=== PATIENT | male | born 1950 | race Caucasian/White ===

== ENCOUNTER → 2016-11-08 | Outpatient (CLI) | payer OTHER ==
[~2016-11-08] MED LIST: ASA81BEC PO; ATORVASTATIN CA40 MG PO; CENTRUM SILVER1 EAC1 PO; CRESTOR20 MG PO; DIOVAN 80 MG TA80 M1 PO; DIOVAN PO; HYDROCHLOROTHIA25 M1 PO; IBUPROFEN 800800 M1 PO; LIPITOR80 MG PO; MIRAPEX PO; MIRAPEX1 MG PO; SKELAXIN 800 M800 M1 PO; TOPROL XL25 MG PO
== END ==
LOC: CAT 06:11
DX: I77.810 Thoracic aortic ectasia (principal)

== ENCOUNTER 2017-02-11 08:39 | Observation (INO) | payer OTHER ==
[~2017-02-11] VITALS: Ht 190.5 cm; Wt 92.6 kg
--- NOTE | ~2017-02-11 | EKG ---
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
--- NOTE | ~2017-02-11 | EKG ---
[address] [address] ELECTROCARDIOGRAM REPORT Name: DANIELA CARVALHO Room #: 214-P [facility].#: [id number] Admission: 02/11/17 Attend Phys: Aman Iverson DO Discharge: Date of : 54 Report #: [id number] THIS REPORT FOR: //name// 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
[2017-02-11 08:40] VITALS: BP 152/82
[2017-02-11 08:58] LABS: ABSOLUTE NEUTROPHILS 3.2 thou/uL (1.4-8.2); BASOPHILS 0.9 % (0.0-2.0); EOSINOPHILS 2.4 % (0.0-3.0); HEMATOCRIT 38.7 % (42.0-52.0); HEMOGLOBIN 13.6 gm/dL (14.0-18.0); LYMPHOCYTES 26.3 % (24.0-44.0); MCH 31.4 pg (26.0-34.0); MCHC 35.2 g/dL (28.0-37.0); MCV 89.3 fL (80.0-100.0); MONOCYTES 6.3 % (1.0-8.0); PLATELET COUNT 142 thou/uL (150-400); POLYS 64.1 % (36.0-66.0); RBC 4.34 mil/uL (4.50-6.00); RDW 13.5 % (10.5-14.5); WBC 5.1 thou/uL (4.0-11.0)
[2017-02-11 08:59] LABS: MANUAL DIFF NO
[2017-02-11 09:04] LABS: ANION GAP 6 mmol/L (7-16); BUN 17 mg/dL (7-18); CALCIUM 8.7 mg/dL (8.5-10.1); CHLORIDE 107 mmol/L (98-107); CO2 28 mmol/L (21-32); CREATININE 0.9 mg/dL (0.7-1.3); GLUCOSE 131 mg/dL (74-106); POTASSIUM 3.6 mmol/L (3.5-5.1); SODIUM 141 mmol/L (136-145)
[2017-02-11 09:12] LABS: TROPONIN-I < 0.04 ng/mL (<0.04-0.07)
[2017-02-11 10:49] VITALS: BP 120/73
[2017-02-11 11:25] VITALS: BP 122/86
[2017-02-11] MEDS ORDERED: ZETIA10 MG PO (12:31)
[2017-02-11 16:40] VITALS: BP 134/85
[2017-02-11 20:14] VITALS: BP 120/80
[2017-02-11 23:42] VITALS: BP 120/69
[2017-02-12 04:26] VITALS: BP 133/88
[2017-02-12 07:15] VITALS: BP 128/81
[2017-02-12 07:42] VITALS: BP 128/81
[2017-02-12 09:31] VITALS: BP 128/81
== END 2017-02-12 09:50 | disposition home or self-care (01) ==
LOC: ER 08:39 → EROBS 10:39 → 2N 10:52
PROVIDERS: Emergency Medicine
DX: R07.9 Chest pain, unspecified (principal); I10 Essential (primary) hypertension; I25.10 Atherosclerotic heart disease of native coronary artery without angina pectoris; G25.0 Essential tremor; E78.5 Hyperlipidemia, unspecified; I71.2 Thoracic aortic aneurysm, without rupture; Z88.8 Allergy status to other drugs, medicaments and biological substances; Z79.1 Long term (current) use of non-steroidal anti-inflammatories (NSAID); Z79.899 Other long term (current) drug therapy; Z98.890 Other specified postprocedural states

== ENCOUNTER → 2017-11-10 | Outpatient (CLI) | payer OTHER ==
[~2017-11-10] MED LIST changes: +ZETIA10 MG PO
== END ==
LOC: CAT 11-07 10:21
DX: I71.2 Thoracic aortic aneurysm, without rupture (principal); I25.10 Atherosclerotic heart disease of native coronary artery without angina pectoris; N28.1 Cyst of kidney, acquired; M47.894 Other spondylosis, thoracic region

== ENCOUNTER → 2018-07-19 | Outpatient (CLI) | payer OTHER ==
[2018-07-19 08:27] LABS: CREATININE 1.1 mg/dL (0.7-1.3)
== END ==
LOC: CAT 07:20
PROVIDERS: Internal Medicine Cardiovascular Disease
DX: I25.10 Atherosclerotic heart disease of native coronary artery without angina pectoris (principal); I71.2 Thoracic aortic aneurysm, without rupture; N28.1 Cyst of kidney, acquired

== ENCOUNTER 2018-12-12 15:52 | Emergency (ER) | payer OTHER ==
[~2018-12-12] VITALS: Ht 190.5 cm; Wt 102.1 kg
[2018-12-12 16:20] LABS: ABSOLUTE NEUTROPHILS 3.1 thou/uL (1.4-8.2); EOSINOPHILS 1.3 % (0.0-3.0); HEMATOCRIT 39.1 % (42.0-52.0); HEMOGLOBIN 13.6 gm/dL (14.0-18.0); MCH 30.7 pg (26.0-34.0); MCHC 34.9 g/dL (28.0-37.0); MCV 88.1 fL (80.0-100.0); MONOCYTES 7.3 % (1.0-8.0); PLATELET COUNT 152 thou/uL (150-400); POLYS 56.4 % (36.0-66.0); RBC 4.44 mil/uL (4.50-6.00); RDW 13.4 % (10.5-14.5); WBC 5.5 thou/uL (4.0-11.0)
[2018-12-12 16:29] LABS: ANION GAP 8 mmol/L (7-16); BUN 17 mg/dL (7-18); CALCIUM 9.3 mg/dL (8.5-10.1); CHLORIDE 104 mmol/L (98-107); CO2 30 mmol/L (21-32); GLUCOSE 98 mg/dL (74-106); POTASSIUM 3.5 mmol/L (3.5-5.1); SODIUM 142 mmol/L (136-145)
[2018-12-12 16:40] LABS: MAGNESIUM 2.1 mg/dL (1.8-2.4); SGOT 20 U/L (15-37); SGPT 24 U/L (30-65); TOTAL BILIRUBIN 0.9 mg/dL (<0.1-1.0); TOTAL PROTEIN 6.9 g/dL (6.4-8.2); TROPONIN-I <0.06 ng/mL (<0.06)
[2018-12-12] MEDS ORDERED: NORFLEX100 MG PO (17:26)
[2018-12-12] MEDS ORDERED: NAPROSYN500 MG PO (17:26)
[2018-12-12 18:01] VITALS: BP 153/90
--- NOTE | 2018-12-13 09:43 | EKG ---
[address] [place] [address] ELECTROCARDIOGRAM REPORT Name: DANIELA CARVALHO 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1950 Requested By: Tad Roland Order Number: [id number] MD: Jerome Garner Measurements Intervals [place] Rate: 50 P: 37 HI: 192 QRS: 25 QRSD: 106 T: 8 QT: 451 QTc: 412 Interpretive Statements Sinus bradycardia Nonspecific ST segment abnormality Compared to ECG 02/11/2017 11:46:10 No significant change was found Electronically Signed On 12-13-2018 9:43:09 CDT by Jerome Garner [email or web address] ��������������������������������������������� <ELECTRONICALLY SIGNED> ���������������������������������������� By: Jerome Garner MD, [facility] ��������������������������������������������� 12/13/18 0943 1557 1557 Jerome Garner MD, FACC /EPI
== END 2018-12-12 18:04 | disposition home or self-care (01) ==
LOC: ER 15:52
PROVIDERS: Emergency Medicine
DX: I71.2 Thoracic aortic aneurysm, without rupture (principal); R07.89 Other chest pain; M43.6 Torticollis; Z87.891 Personal history of nicotine dependence; Z88.5 Allergy status to narcotic agent; M19.90 Unspecified osteoarthritis, unspecified site

== ENCOUNTER → 2019-08-01 | Outpatient (CLI) | payer OTHER ==
[~2019-08-01] MED LIST changes: +NAPROSYN500 MG PO; +NORFLEX100 MG PO
[2019-08-01 08:01] LABS: CREATININE 0.9 mg/dL (0.7-1.3)
== END ==
LOC: CAT 07:30
PROVIDERS: Internal Medicine Cardiovascular Disease
DX: I71.6 Thoracoabdominal aortic aneurysm, without rupture (principal); I25.10 Atherosclerotic heart disease of native coronary artery without angina pectoris; N28.1 Cyst of kidney, acquired; M47.814 Spondylosis without myelopathy or radiculopathy, thoracic region

== ENCOUNTER → 2020-02-07 | Outpatient (CLI) | payer OTHER | LOC: SJCVC 12:59 | PROVIDERS: ATTEND Internal Medicine Cardiovascular Disease | DX: R00.1 Bradycardia, unspecified (principal); I25.10 Atherosclerotic heart disease of native coronary artery without angina pectoris; I10 Essential (primary) hypertension; E78.00 Pure hypercholesterolemia, unspecified; I71.2 Thoracic aortic aneurysm, without rupture ==

== ENCOUNTER → 2020-09-04 | Outpatient (CLI) | payer OTHER | LOC: SJCVC 10:44 | PROVIDERS: ATTEND Urology | DX: R94.31 Abnormal electrocardiogram [ECG] [EKG] (principal); I25.10 Atherosclerotic heart disease of native coronary artery without angina pectoris; I10 Essential (primary) hypertension; E78.00 Pure hypercholesterolemia, unspecified; I71.2 Thoracic aortic aneurysm, without rupture; R00.1 Bradycardia, unspecified; I48.91 Unspecified atrial fibrillation; I25.5 Ischemic cardiomyopathy; E78.5 Hyperlipidemia, unspecified; Z87.891 Personal history of nicotine dependence; Z79.82 Long term (current) use of aspirin; Z79.899 Other long term (current) drug therapy; Z88.5 Allergy status to narcotic agent ==

== ENCOUNTER → 2020-09-16 | Outpatient (CLI) | payer OTHER | LOC: SJCVCIMAG 06:38 | PROVIDERS: ATTEND Internal Medicine Cardiovascular Disease | DX: I25.10 Atherosclerotic heart disease of native coronary artery without angina pectoris (principal); R00.0 Tachycardia, unspecified; I49.3 Ventricular premature depolarization; I48.91 Unspecified atrial fibrillation; I10 Essential (primary) hypertension; E78.00 Pure hypercholesterolemia, unspecified; I71.4 Abdominal aortic aneurysm, without rupture; I42.9 Cardiomyopathy, unspecified; E78.5 Hyperlipidemia, unspecified; Z98.890 Other specified postprocedural states; Z88.8 Allergy status to other drugs, medicaments and biological substances; Z79.82 Long term (current) use of aspirin; Z79.899 Other long term (current) drug therapy; Z87.891 Personal history of nicotine dependence; Z82.49 Family history of ischemic heart disease and other diseases of the circulatory system ==

== ENCOUNTER → 2021-03-22 | Outpatient (CLI) | payer OTHER | LOC: SJCVC 08:33 | PROVIDERS: ATTEND Internal Medicine Cardiovascular Disease | DX: R00.1 Bradycardia, unspecified (principal); I44.0 Atrioventricular block, first degree; I10 Essential (primary) hypertension; I25.10 Atherosclerotic heart disease of native coronary artery without angina pectoris; E78.00 Pure hypercholesterolemia, unspecified; I48.91 Unspecified atrial fibrillation; I42.9 Cardiomyopathy, unspecified; I71.2 Thoracic aortic aneurysm, without rupture; Z88.5 Allergy status to narcotic agent; Z88.8 Allergy status to other drugs, medicaments and biological substances; Z79.82 Long term (current) use of aspirin; Z79.899 Other long term (current) drug therapy; Z87.891 Personal history of nicotine dependence; Z82.49 Family history of ischemic heart disease and other diseases of the circulatory system ==

== ENCOUNTER → 2021-08-18 | Outpatient (CLI) | payer OTHER | LOC: CAT 08-02 11:39 | PROVIDERS: ATTEND Internal Medicine Cardiovascular Disease | DX: I71.2 Thoracic aortic aneurysm, without rupture (principal); N28.1 Cyst of kidney, acquired; I25.10 Atherosclerotic heart disease of native coronary artery without angina pectoris ==